=== PATIENT | male | born 1990 | race Caucasian/White ===

== ENCOUNTER 2024-12-22 16:01 | Outpatient (CLI) | payer OTHER | END 2024-12-22 16:02 | disposition home or self-care (01) | LOC: CSHMRI 16:01 | PROVIDERS: ATTEND Nurse Practitioner Family | DX: M50.122 Cervical disc disorder at C5-C6 level with radiculopathy (principal); M48.02 Spinal stenosis, cervical region | CPT/HCPCS: 72141 ==